=== PATIENT | female | born 1960 | race Caucasian/White ===

== ENCOUNTER → 2016-11-18 | Outpatient (CLI) | payer MEDICARE, MEDICAID ==
[~2016-11-18] MED LIST: CARB200T6 PO; FERR159T PO; IRON150C8 PO; SIMV20TA3 PO
--- NOTE | 2016-11-19 13:52 | Diagnostic Imaging Report ---
Bilateral screening mammogram. The current study was also evaluated with a Computer Aided Detection (CAD) system. INDICATION: Screening. No current complaints stated on the questionnaire. COMPARISON: 11/14/15. FINDINGS: The breasts are composed of heterogeneously dense parenchyma which may decrease mammographic sensitivity. There is no mass, architectural distortion or suspicious cluster of calcification. Allowing for technique and positional differences, no suspicious change is seen. IMPRESSION: Dense breasts with no definite change. ACR BI-RADS Category 2: Benign findings. Result letter will be mailed to the patient. Note: At least 10% of breast cancer is not imaged by mammography. Dictated by: Dictated on workstation # [id number]
== END ==
LOC: RAD 09:30
PROVIDERS: ATTEND Nurse Practitioner Family
DX: Z12.31 Encounter for screening mammogram for malignant neoplasm of breast (principal)
CPT/HCPCS: 77067

== ENCOUNTER → 2017-12-10 | Outpatient (CLI) | payer MEDICARE, MEDICAID ==
--- NOTE | 2017-12-10 12:15 | Diagnostic Imaging Report ---
DEXA scan. Indication: Screening for osteoporosis. The bone mineral density of the hips and spine was measured. There are no prior studies available for comparison. The T score for the spine is -2.8. The value falls within the range of osteoporosis. The T score for the left hip is -1.5 and right hip -1.6. These values indicate osteopenia. Impression: There is osteoporosis of the spine and osteopenia of both hips. Dictated by: Dictated on workstation # [id number]
== END ==
LOC: RAD 08:42
PROVIDERS: ATTEND Internal Medicine Endocrinology, Diabetes & Metabolism
DX: Z13.820 Encounter for screening for osteoporosis (principal); M81.0 Age-related osteoporosis without current pathological fracture; M85.88 Other specified disorders of bone density and structure, other site; Z78.0 Asymptomatic menopausal state
CPT/HCPCS: 77080

== ENCOUNTER → 2018-06-08 | Outpatient (CLI) | payer MEDICARE, MEDICAID ==
--- NOTE | 2018-06-08 12:49 | Diagnostic Imaging Report ---
INDICATION: Routine screening. COMPARISON: 11/18/2016 and 11/14/2015. TECHNIQUE: 2D and 3D bilateral screening mammography was performed with CAD. FINDINGS: Both breasts are heterogeneously dense, limiting the sensitivity of mammography. No dominant mass or malignant appearing microcalcifications are seen. The axillae are unremarkable. IMPRESSION: No mammographic features suspicious for malignancy are identified. ACR BI-RADS Category 1: Negative. Result letter will be mailed to the patient. Note: At least 10% of breast cancer is not imaged by mammography. Dictated by: Dictated on workstation # [id number]
== END ==
LOC: RAD 10:05
PROVIDERS: ATTEND Family Medicine
DX: Z12.31 Encounter for screening mammogram for malignant neoplasm of breast (principal)
CPT/HCPCS: 77067

== ENCOUNTER → 2018-12-28 | Outpatient (CLI) | payer MEDICARE, MEDICAID ==
--- NOTE | 2018-12-28 14:21 | Diagnostic Imaging Report ---
PROCEDURE: CT chest without contrast. TECHNIQUE: Multiple contiguous axial images were obtained through the chest without the use of intravenous contrast. Auto Exposure Controls were utilized during the CT exam to meet ALARA standards for radiation dose reduction. FINDINGS: No axillary lymphadenopathy is seen. No definite hilar or mediastinal mass is detected. There is no pericardial or pleural fluid identified. Previously noted right upper lobe nodule appears stable at 5 mm. This compares with approximately 6-7 mm on prior exam. No additional pulmonary nodular opacity is seen. No infiltrates are identified. Upper abdomen does show atrophy to the right kidney. IMPRESSION: Stable right upper lobe nodule when compared with prior chest CT from 06/08/2018. This does show six months of stability. Followup CT chest in 6-12 months to show continued stability is recommended. Dictated by: Dictated on workstation # [id number]
== END ==
LOC: RAD 12:23
PROVIDERS: ATTEND Family Medicine
DX: R91.1 Solitary pulmonary nodule (principal)
CPT/HCPCS: 71250

== ENCOUNTER → 2019-07-21 | Outpatient (CLI) | payer MEDICARE, MEDICAID ==
[~2019-07-21] MED LIST changes: +HOLD METFORMIN - RECEIVED CONTRAST 20 ML VIAL IV SCH; +IOHEXOL 350 MG/ML 100 ML (OMNIPAQUE 350) VIAL IV ONE; +NS 100 ML (IVPB) BAG IV ONE
--- NOTE | 2019-07-21 09:34 | Diagnostic Imaging Report ---
PROCEDURE: CT chest with contrast only. TECHNIQUE: Multiple contiguous axial images were obtained through the chest after administration of intravenous contrast. Auto Exposure Controls were utilized during the CT exam to meet ALARA standards for radiation dose reduction. INDICATION: Six-month follow-up of pulmonary nodules. COMPARISON: Correlation is made with prior CT chest from 12/28/2018. FINDINGS: No axillary lymphadenopathy is detected. Mediastinum and cindy are unremarkable. No pericardial or pleural fluid is detected. Right upper lobe nodule measures 4-5 mm in size, stable. A left upper lobe nodule is stable at 4 mm. No new pulmonary nodules are detected. Upper abdomen demonstrates atrophy to the right kidney. IMPRESSION: Stable upper lobe pulmonary micronodules. These now show one year of stability. Additional follow-up in 12 months could be performed. Dictated by: Dictated on workstation # [id number]
== END ==
LOC: RAD 08:20
PROVIDERS: ATTEND Nurse Practitioner Family
DX: R91.8 Other nonspecific abnormal finding of lung field (principal)
CPT/HCPCS: 71260

== ENCOUNTER → 2019-12-13 | Outpatient (CLI) | payer MEDICARE, MEDICAID ==
[~2019-12-13] MED LIST changes: -HOLD METFORMIN - RECEIVED CONTRAST 20 ML VIAL IV SCH; -IOHEXOL 350 MG/ML 100 ML (OMNIPAQUE 350) VIAL IV ONE; -NS 100 ML (IVPB) BAG IV ONE
--- NOTE | 2019-12-13 09:13 | Diagnostic Imaging Report ---
INDICATION: Postmenopausal female COMPARISON: 12/10/2017 FINDINGS: AP Spine L1-L4: [BMD (g/cm2): 0.950] [T-Score: -2.1] [Z-Score: -0.8] [BMD Previous: 0.867] [BMD % Change: 9.6] LT Hip Neck: [BMD (g/cm2): 0.723] [T-Score: -2.3] [Z-Score: -1.0] LT Hip Total: [BMD (g/cm2):0.850] [T-Score:-1.3] [Z-Score: -0.3] [BMD Previous: 0.817] [BMD % Change: 4.0] RT Hip Neck: [BMD (g/cm2):0.795] [T-Score:-1.7] [Z-Score:-0.5] RT Hip Total: [BMD (g/cm2):0.881] [T-score:-1.0] [Z-Score:0.0] [BMD Previous:0.810] [BMD % Change:8.8] World Health Organization criteria for BMD interpretation classify patients as Normal (T-score at or above -1.0), Osteopenic (T-score between -1.0 and -2.5) or Osteoporotic (T-score at or below -2.5). LIMITATIONS AND MODIFICATION: None. FRACTURE RISK (FRAX SCORE): The ten year probability of (%): Major Osteoporotic Fracture: [11.4] Hip Fracture: [2.9] IMPRESSION: 1. Osteopenia (Low bone mass). 2. There has been an increase in BMD since prior exam, detailed above. 3. See below National Osteoporosis Foundation guidelines on when to potentially initiate pharmacologic therapy. Based on the National Osteoporosis Foundation Guidelines, pharmacologic treatment should be initiated in any of the following, unless clinical conditions suggest otherwise: * Any patient with prior fragility fracture of the hip or vertebrae. A spine fracture indicates 5X risk for subsequent spine fracture and 2X risk for subsequent hip fracture. * Osteoporosis (T-score <-2.5). * Postmenopausal women and men age 50 and older with low bone mass/osteopenia (T-score between -1.0 and -2.5) by DXA and 10-year major osteoporotic fracture greater than 20% or a 10-year probability of hip fracture greater than 3%. These fracture risks are supplied above in the FRAX score, if applicable. * Clinician judgement and/or patient preferences may indicate treatment for people with 10-year fracture probabilities above or below these levels. Dictated by: Dictated on workstation # [id number]
== END ==
LOC: RAD 08:14
PROVIDERS: ATTEND Internal Medicine Endocrinology, Diabetes & Metabolism
DX: M85.89 Other specified disorders of bone density and structure, multiple sites (principal); M81.0 Age-related osteoporosis without current pathological fracture; Z78.0 Asymptomatic menopausal state
CPT/HCPCS: 77080

== ENCOUNTER → 2020-03-06 | Outpatient (CLI) | payer MEDICARE, MEDICAID | LOC: RT 07:40 | PROVIDERS: ATTEND Family Medicine | DX: R05 Cough (principal); F17.200 Nicotine dependence, unspecified, uncomplicated ==

== ENCOUNTER → 2020-05-09 | Outpatient (CLI) | payer MEDICARE, MEDICAID ==
--- NOTE | 2020-05-09 11:04 | Diagnostic Imaging Report ---
CT CHEST WO TECHNIQUE: Multiple contiguous axial images were obtained through the chest without the use of intravenous contrast. All CT scans use one or more of the following dose optimizing techniques: automated exposure control, MA and/or KvP adjustment based on a patient size and exam type, or iterative reconstruction. INDICATION: Followup pulmonary nodule. COMPARISON: CT chest of 06/08/2018, 12/28/2018, and 07/11/2019. FINDINGS: Lungs and airway: No endoluminal nodule within the trachea. No pulmonary mass or consolidation has developed. Stable 4 mm average right upper lobe triangular nodule (image 30, series 3). Stable 4 mm average left upper lobe pulmonary nodule (image 35). No new pulmonary nodules. Pleura: No pleural effusion or pneumothorax. Heart and mediastinum: Thyroid is normal. No subclavicular or axillary lymphadenopathy. No mediastinal, hilar, or juxtaphrenic lymphadenopathy. Heart is normal in size without pericardial effusion. Normal caliber thoracic aorta. Upper abdomen: Atrophic right kidney is again noted. No acute abnormality in the upper abdomen. Musculoskeletal: No lytic or blastic skeletal lesions have developed. IMPRESSION: 1. The bilateral upper lobe pulmonary nodules are stable for 2 years and require no dedicated followup imaging. 2. No new abnormality. 3. Followup CT chest should be based on smoking history and reinitiation of annual lung cancer screening. A low-dose CT chest should be considered. Dictated by: Dictated on workstation # [id number]
== END ==
LOC: RAD 10:15
PROVIDERS: ATTEND Nurse Practitioner Family
DX: R91.8 Other nonspecific abnormal finding of lung field (principal); R05 Cough
CPT/HCPCS: 71250

== ENCOUNTER → 2020-09-05 | Outpatient (CLI) | payer MEDICARE, MEDICAID ==
--- NOTE | 2020-09-06 11:39 | Diagnostic Imaging Report ---
Indication: Routine screening. Comparison is made prior mammogram 06/08/2018 and 11/18/2016. 2-D and 3-D bilateral screening mammography was performed with CAD. Both breast are heterogeneously dense, limiting the sensitivity of mammography. The parenchymal pattern is stable. No mass or malignant appearing microcalcifications are seen. Axillae are unremarkable. IMPRESSION: BI-RADS Category 1 No mammographic features suspicious for malignancy are identified. ACR BI-RADS Category 1: Negative. Result letter will be mailed to the patient. Note: At least 10% of breast cancer is not imaged by mammography. Dictated by: Dictated on workstation # [id number]
== END ==
LOC: RAD 09:45
PROVIDERS: ATTEND Family Medicine
DX: Z12.31 Encounter for screening mammogram for malignant neoplasm of breast (principal)
CPT/HCPCS: 77063; 77067

== ENCOUNTER → 2021-09-25 | Outpatient (CLI) | payer MEDICARE, MEDICAID ==
--- NOTE | 2021-09-25 16:50 | Diagnostic Imaging Report ---
PROCEDURE: CT chest without contrast. TECHNIQUE: Multiple contiguous axial images were obtained through the chest without the use of intravenous contrast. Auto Exposure Controls were utilized during the CT exam to meet ALARA standards for radiation dose reduction. INDICATION: Pulmonary nodule. COMPARISON: May 09, 2020, and December 28, 2018. FINDINGS: No significant adenopathy within the chest. Mild scattered vascular calcifications without aneurysmal dilatation of the thoracic aorta. The heart is within normal limits in size. No pericardial effusion. No pleural effusion. No pneumothorax. The trachea is patent. 0.4 cm left upper lobe pulmonary nodule is unchanged since December 2018. 0.4 cm right upper lobe pulmonary nodule is also unchanged since 2018, and benign. No new suspicious pulmonary nodule. Atrophy of the right kidney is partially visualized. Minimally visualized upper abdomen is otherwise unremarkable. Mild scattered osseous degenerative changes without acute osseous abnormality. IMPRESSION: Stable bilateral 4 mm and smaller pulmonary nodules without new pulmonary nodule. Given stability for greater than two years, these are felt to be benign. No acute abnormality within the chest. Dictated by: Dictated on workstation # [id number]
--- NOTE | 2021-09-26 09:13 | Diagnostic Imaging Report ---
INDICATION: Routine screening. COMPARISON is made with prior mammograms from 09/05/2020 and 06/08/2018. 2-D and 3-D bilateral screening mammography was performed with CAD. Both breasts are heterogeneously dense, limiting the sensitivity of mammography. The parenchymal pattern is stable. No mass or malignant-appearing microcalcifications are seen. Axillae are unremarkable. IMPRESSION: BI-RADS Category 1 No mammographic features suspicious for malignancy are identified. ACR BI-RADS Category 1: Negative. Result letter will be mailed to the patient. Note: At least 10% of breast cancer is not imaged by mammography. Dictated by: Dictated on workstation # [id number]
== END ==
LOC: RAD 15:00
PROVIDERS: ATTEND Nurse Practitioner Family
DX: Z12.31 Encounter for screening mammogram for malignant neoplasm of breast (principal); R91.8 Other nonspecific abnormal finding of lung field
CPT/HCPCS: 71250; 77063; 77067

== ENCOUNTER → 2021-12-24 | Outpatient (CLI) | payer MEDICARE, MEDICAID ==
--- NOTE | 2021-12-24 15:05 | Diagnostic Imaging Report ---
INDICATION: 61-year-old asymptomatic postmenopausal female COMPARISON: 12/13/2019 FINDINGS: AP Spine L1-L4: [BMD (g/cm2): 0.945] [T-Score: -2.1] [Z-Score: -0.7] [BMD Previous: 0.950] [BMD % Change: -0.5] LT Hip Neck: [BMD (g/cm2): 0.738] [T-Score: -2.2] [Z-Score: -0.8] LT Hip Total: [BMD (g/cm2):0.852] [T-Score:-1.2] [Z-Score: -0.1] [BMD Previous: 0.850] [BMD % Change: 0.2] RT Hip Neck: [BMD (g/cm2):0.742] [T-Score:-2.1] [Z-Score:-0.7] RT Hip Total: [BMD (g/cm2):0.836] [T-score:-1.4] [Z-Score:-0.3] [BMD Previous:0.881] [BMD % Change:-5.1] *Indicates significant change from prior examination based on 95% confidence level. World Health Organization criteria for BMD interpretation classify patients as Normal (T-score at or above -1.0), Osteopenic (T-score between -1.0 and -2.5) or Osteoporotic (T-score at or below -2.5). LIMITATIONS AND MODIFICATION: None. FRACTURE RISK (FRAX SCORE): The ten year probability of (%): Major Osteoporotic Fracture: [11.4] Hip Fracture: [2.9] IMPRESSION: 1. Osteopenia (Low bone mass). 2. No significant change in bone mineral density since prior examination. 3. See below National Osteoporosis Foundation guidelines on when to potentially initiate pharmacologic therapy. Based on the National Osteoporosis Foundation Guidelines, pharmacologic treatment should be initiated in any of the following, unless clinical conditions suggest otherwise: * Any patient with prior fragility fracture of the hip or vertebrae. A spine fracture indicates 5X risk for subsequent spine fracture and 2X risk for subsequent hip fracture. * Osteoporosis (T-score <-2.5). * Postmenopausal women and men age 50 and older with low bone mass/osteopenia (T-score between -1.0 and -2.5) by DXA and 10-year major osteoporotic fracture greater than 20% or a 10-year probability of hip fracture greater than 3%. These fracture risks are supplied above in the FRAX score, if applicable. * Clinician judgement and/or patient preferences may indicate treatment for people with 10-year fracture probabilities above or below these levels. Dictated by: Dictated on workstation # [id number]
== END ==
LOC: RAD 09:00
PROVIDERS: ATTEND Internal Medicine Endocrinology, Diabetes & Metabolism
DX: M85.80 Other specified disorders of bone density and structure, unspecified site (principal); Z78.0 Asymptomatic menopausal state
CPT/HCPCS: 77080

== ENCOUNTER → 2023-05-25 | Outpatient (CLI) | payer MEDICARE, MEDICAID ==
--- NOTE | 2023-05-25 18:52 | Diagnostic Imaging Report ---
EXAMINATION: Right knee radiographs, 3 views. COMPARISON: None. HISTORY: 63-year-old female, right knee pain. Fall on May 24, 2023. FINDINGS: There is severe patellofemoral compartment joint space loss with osteophytes. There is a small to moderate right knee joint effusion. There is no identified acute fracture. IMPRESSION: 1. Advanced predominantly patellofemoral compartment arthritis with small to moderate-sized knee joint effusion. Dictated by: Dictated on workstation # [id number]
== END ==
LOC: RAD 13:58
PROVIDERS: ATTEND Nurse Practitioner Family
DX: M17.11 Unilateral primary osteoarthritis, right knee (principal); Z91.81 History of falling
CPT/HCPCS: 73562